=== PATIENT | male | born 1950 | race Caucasian/White ===

== ENCOUNTER → 2018-09-19 | Outpatient (RCR) | payer MEDICARE, OTHER ==
[~2018-09-19] MED LIST: HUMALOG100 UNIT/1 SC; METFORMIN HCL500 MG PO; TRESIBA SC; WAL-DRYL25 MG PO; ZESTORETIC 20-1 EAC1 PO
[2018-09-19 16:23] LABS: BASOPHILS # (AUTO) 0.1 (0.0-0.1); BASOPHILS % 0.7 % (0.0-1.0); EOSINOPHILS # (AUTO) 0.2 (0.0-0.4); EOSINOPHILS % 1.9 % (0.0-6.0); HEMOGLOBIN 14.7 g/dL (14.0-18.0); LYMPHOCYTES # (AUTO) 2.8 (1.0-3.2); LYMPHOCYTES % 25.5 % (18.0-39.1); MEAN CORPUSCULAR HEMOGLOBIN 32.7 pg (28-32); MEAN CORPUSCULAR HGB CONC 35.9 g/dL (31-35); MEAN CORPUSCULAR VOLUME 91.3 fL (81-99); MONOCYTES # (AUTO) 0.8 (0.2-0.8); MONOCYTES % 7.6 % (4.4-11.3); NEUTROPHILS % 63.8 % (38.7-80.0); PLATELET COUNT 234 x10e3/uL (140-360); RED BLOOD COUNT 4.49 x10e6/uL (4.3-5.7); RED CELL DISTRIBUTION WIDTH 12.4 % (11.7-14.4)
[2018-09-19 16:50] LABS: ALANINE AMINOTRANSFERASE 32 IU/L (0-55); ALBUMIN 3.6 g/dL (3.5-5.0); ALBUMIN/GLOBULIN RATIO 0.9 (0.8-2.0); ALKALINE PHOSPHATASE 48 IU/L (40-150); ANION GAP 12.9 mmol/L (8-16); BLOOD UREA NITROGEN 20 mg/dL (7-26); BUN/CREATININE RATIO 19 (6-25); CALCIUM 9.6 mg/dL (8.4-10.2); CARBON DIOXIDE 23 mmol/L (22-29); CHLORIDE 104 mmol/L (98-107); CREATININE, SERUM 1.08 mg/dL (0.72-1.25); EST GLOMERULAR FILTRATION RATE > 60 ML/MIN (60-); GLUCOSE 128 mg/dL (74-118); POTASSIUM 3.9 mmol/L (3.5-5.1); SODIUM 136 mmol/L (136-145)
[2018-09-19 17:22] LABS: ERYTHROCYTE SEDIMENTATION RATE 40 mm/hr (0-13)
== END ==
LOC: EDBD → WCC 14:03
PROVIDERS: ATTEND Podiatrist
DX: E11.621 Type 2 diabetes mellitus with foot ulcer (principal); E11.40 Type 2 diabetes mellitus with diabetic neuropathy, unspecified; E11.65 Type 2 diabetes mellitus with hyperglycemia; L97.519 Non-pressure chronic ulcer of other part of right foot with unspecified severity; I10 Essential (primary) hypertension
CPT/HCPCS: 36415; 80053; 83036; 84134; 85025; 85651; 86140

== ENCOUNTER → 2018-09-24 | Outpatient (CLI) | payer MEDICARE, OTHER ==
--- NOTE | 2018-09-24 08:51 | Diagnostic Imaging Report ---
Exam: Right for foot, 3 views History: Type 2 diabetes, ulcer Comparison: None available Findings: No acute, displaced fracture or dislocation. 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 Degenerative spur along the midfoot dorsally. No gross soft tissue defect or subcutaneous gas. No cortical erosive or destructive change. Impression: No gross soft tissue defect or plain film evidence of osteomyelitis. If there is strong clinical concern 3 phase nuclear medicine bone scan or MRI with and without contrast may be obtained. Signed by: Dr. Dom Danielson M.D. on 09/24/2018 8:47 AM
== END ==
LOC: EDBD → CARD 08:07
PROVIDERS: ATTEND Podiatrist
DX: E11.621 Type 2 diabetes mellitus with foot ulcer (principal); L97.519 Non-pressure chronic ulcer of other part of right foot with unspecified severity
CPT/HCPCS: 93922; 93926

== ENCOUNTER 2018-10-03 14:18 | Outpatient (RCR) | payer MEDICARE, OTHER ==
[~2018-10-03 14:18] MED LIST changes: +LIDOCAINE VISC 2% SOLN 15 ML UDC ONE
== END 2018-10-19 ==
LOC: WCC 14:18
PROVIDERS: ATTEND Podiatrist
DX: E11.40 Type 2 diabetes mellitus with diabetic neuropathy, unspecified (principal); E11.65 Type 2 diabetes mellitus with hyperglycemia; E11.621 Type 2 diabetes mellitus with foot ulcer; L97.519 Non-pressure chronic ulcer of other part of right foot with unspecified severity; I10 Essential (primary) hypertension

== ENCOUNTER → 2020-07-18 | Outpatient (CLI) | payer MEDICARE ==
[~2020-07-18] MED LIST changes: -LIDOCAINE VISC 2% SOLN 15 ML UDC ONE
== END ==
LOC: DX 09:56
PROVIDERS: ATTEND Internal Medicine Infectious Disease
DX: M86.271 Subacute osteomyelitis, right ankle and foot (principal)
CPT/HCPCS: 36569; 71045

== ENCOUNTER → 2020-08-03 | Outpatient (CLI) | payer MEDICARE | LOC: CARD 08:29 | PROVIDERS: ATTEND Podiatrist | DX: E11.621 Type 2 diabetes mellitus with foot ulcer (principal); L97.511 Non-pressure chronic ulcer of other part of right foot limited to breakdown of skin; I73.9 Peripheral vascular disease, unspecified | CPT/HCPCS: 93922; 93925 ==

== ENCOUNTER 2020-08-17 14:37 | Outpatient (RCR) | payer MEDICARE ==
[2020-07-27 18:18] LABS: BASOPHILS # (AUTO) 0.1 (0.0-0.1); BASOPHILS % 0.8 % (0.0-1.0); EOSINOPHILS # (AUTO) 0.2 (0.0-0.4); EOSINOPHILS % 2.8 % (0.0-6.0); HEMATOCRIT 47.4 % (38.2-49.6); HEMOGLOBIN 16.2 g/dL (14.0-18.0); LYMPHOCYTES # (AUTO) 1.9 (1.0-3.2); LYMPHOCYTES % 24.1 % (18.0-39.1); MEAN CORPUSCULAR HEMOGLOBIN 31.2 pg (28-32); MEAN CORPUSCULAR HGB CONC 34.2 g/dL (31-35); MEAN CORPUSCULAR VOLUME 91.3 fL (81-99); MONOCYTES # (AUTO) 0.6 (0.2-0.8); MONOCYTES % 7.8 % (4.4-11.3); NEUTROPHILS # (AUTO) 5.1 (2.1-6.9); NEUTROPHILS % 63.9 % (38.7-80.0); PLATELET COUNT 184 x10e3/uL (140-360); RED BLOOD COUNT 5.19 x10e6/uL (4.3-5.7); RED CELL DISTRIBUTION WIDTH 12.4 % (11.7-14.4)
[2020-07-27 18:36] LABS: ALANINE AMINOTRANSFERASE 44 IU/L (0-55); ALBUMIN 3.4 g/dL (3.5-5.0); ALBUMIN/GLOBULIN RATIO 0.9 (0.8-2.0); ALKALINE PHOSPHATASE 55 IU/L (40-150); ANION GAP 16.2 mmol/L (8-16); BLOOD UREA NITROGEN 20 mg/dL (7-26); BUN/CREATININE RATIO 23 (6-25); CARBON DIOXIDE 24 mmol/L (22-29); CHLORIDE 101 mmol/L (98-107); CREATININE, SERUM 0.87 mg/dL (0.72-1.25); EST GLOMERULAR FILTRATION RATE > 60 ML/MIN (60-); GLUCOSE 108 mg/dL (74-118); POTASSIUM 4.2 mmol/L (3.5-5.1); SODIUM 137 mmol/L (136-145)
[~2020-08-17 14:37] MED LIST changes: +LIDOCAINE VISC 2% SOLN 15 ML UDC ONE
== END 2020-08-19 ==
LOC: WCC 14:37
PROVIDERS: ATTEND Podiatrist
DX: E11.621 Type 2 diabetes mellitus with foot ulcer (principal); E11.40 Type 2 diabetes mellitus with diabetic neuropathy, unspecified; E11.65 Type 2 diabetes mellitus with hyperglycemia; L97.511 Non-pressure chronic ulcer of other part of right foot limited to breakdown of skin; I10 Essential (primary) hypertension
CPT/HCPCS: 36415; 80053; 83036; 84134; 85025; 85651; 86140

== ENCOUNTER 2020-09-14 13:25 | Outpatient (RCR) | payer MEDICARE ==
[~2020-09-14 13:25] MED LIST changes: +IOPAMIDOL 370 MG/ML 200 ML INFUS..BTL INJ ONE; +LIDOCAINE/PRILOCAINE 2.5-2.5% KIT ONE; +SODIUM CHLORIDE 0.9% 50ML 50 ML ONE
== END 2020-09-19 ==
LOC: WCC 13:25
PROVIDERS: ATTEND Podiatrist
DX: E11.621 Type 2 diabetes mellitus with foot ulcer (principal); E11.40 Type 2 diabetes mellitus with diabetic neuropathy, unspecified; E11.65 Type 2 diabetes mellitus with hyperglycemia; L97.511 Non-pressure chronic ulcer of other part of right foot limited to breakdown of skin; I10 Essential (primary) hypertension
CPT/HCPCS: 11042 ×4; Q9967

== ENCOUNTER → 2020-10-19 | Outpatient (RCR) | payer MEDICARE ==
[~2020-10-19] MED LIST changes: -IOPAMIDOL 370 MG/ML 200 ML INFUS..BTL INJ ONE; -LIDOCAINE VISC 2% SOLN 15 ML UDC ONE; -LIDOCAINE/PRILOCAINE 2.5-2.5% KIT ONE; -SODIUM CHLORIDE 0.9% 50ML 50 ML ONE
== END ==
LOC: WCC 09-21 14:11
PROVIDERS: ATTEND Podiatrist
DX: E11.621 Type 2 diabetes mellitus with foot ulcer (principal); E11.40 Type 2 diabetes mellitus with diabetic neuropathy, unspecified; E11.65 Type 2 diabetes mellitus with hyperglycemia; L97.511 Non-pressure chronic ulcer of other part of right foot limited to breakdown of skin; I10 Essential (primary) hypertension
CPT/HCPCS: 36415; 82948

== ENCOUNTER 2020-11-18 15:20 | Outpatient (RCR) | payer MEDICARE ==
[~2020-11-18 15:20] MED LIST changes: +LIDOCAINE VISC 2% SOLN 15 ML UDC ONE
== END 2020-11-19 ==
LOC: WCC 15:20
PROVIDERS: ATTEND Podiatrist
DX: E11.621 Type 2 diabetes mellitus with foot ulcer (principal); E11.40 Type 2 diabetes mellitus with diabetic neuropathy, unspecified; E11.65 Type 2 diabetes mellitus with hyperglycemia; L97.511 Non-pressure chronic ulcer of other part of right foot limited to breakdown of skin; I10 Essential (primary) hypertension

== ENCOUNTER 2020-12-14 14:28 | Outpatient (RCR) | payer MEDICARE ==
[~2020-12-14 14:28] MED LIST changes: -LIDOCAINE VISC 2% SOLN 15 ML UDC ONE
== END 2020-12-20 ==
LOC: WCC 14:28
PROVIDERS: ATTEND Podiatrist
DX: E11.621 Type 2 diabetes mellitus with foot ulcer (principal); E11.40 Type 2 diabetes mellitus with diabetic neuropathy, unspecified; E11.65 Type 2 diabetes mellitus with hyperglycemia; L97.511 Non-pressure chronic ulcer of other part of right foot limited to breakdown of skin; I10 Essential (primary) hypertension

== ENCOUNTER 2021-01-11 15:02 | Outpatient (RCR) | payer MEDICARE | END 2021-01-19 | LOC: WCC 15:02 | PROVIDERS: ATTEND Podiatrist | DX: E11.621 Type 2 diabetes mellitus with foot ulcer (principal); E11.40 Type 2 diabetes mellitus with diabetic neuropathy, unspecified; E11.65 Type 2 diabetes mellitus with hyperglycemia; L97.511 Non-pressure chronic ulcer of other part of right foot limited to breakdown of skin; I10 Essential (primary) hypertension ==

== ENCOUNTER 2021-02-15 15:02 | Outpatient (RCR) | payer MEDICARE | END 2021-02-19 | LOC: WCC 15:02 | PROVIDERS: ATTEND Podiatrist | DX: E11.40 Type 2 diabetes mellitus with diabetic neuropathy, unspecified (principal); E11.65 Type 2 diabetes mellitus with hyperglycemia; E11.621 Type 2 diabetes mellitus with foot ulcer; L97.511 Non-pressure chronic ulcer of other part of right foot limited to breakdown of skin; I10 Essential (primary) hypertension ==

== ENCOUNTER 2021-02-22 15:59 | Outpatient (RCR) | payer MEDICARE ==
[2021-02-22] MEDS ORDERED: MUPIROCIN 2% OINT 22 GM TUBE ONE (16:24)
== END 2021-03-21 ==
LOC: WCC 15:59
PROVIDERS: ATTEND Podiatrist
DX: E11.621 Type 2 diabetes mellitus with foot ulcer (principal); E11.40 Type 2 diabetes mellitus with diabetic neuropathy, unspecified; E11.65 Type 2 diabetes mellitus with hyperglycemia; L97.511 Non-pressure chronic ulcer of other part of right foot limited to breakdown of skin; I10 Essential (primary) hypertension

== ENCOUNTER 2024-02-19 19:04 | Emergency (ER) | payer MEDICARE ==
[~2024-02-19] VITALS: Ht 188 cm; Wt 127.0 kg
[2024-02-19 19:39] VITALS: PULSE 95; RESP 20; TEMP 97.1; O2SAT 97
[2024-02-19] MEDS ORDERED: NASONEX 24HR AL17 ML (20:07)
== END 2024-02-19 20:25 | disposition home or self-care (01) ==
LOC: FSED 19:38
DX: R42 Dizziness and giddiness (principal); H66.91 Otitis media, unspecified, right ear; I10 Essential (primary) hypertension; E11.9 Type 2 diabetes mellitus without complications
CPT/HCPCS: 99282

== ENCOUNTER 2024-08-27 15:36 | Emergency (ER) | payer MEDICARE ==
[~2024-08-27] VITALS: Ht 185.4 cm; Wt 118.5 kg
[~2024-08-27 15:36] MED LIST changes: +NASONEX 24HR AL17 ML
[2024-08-27] MEDS ORDERED: DOXYCYCLINE HY100 MG PO (16:55)
[2024-08-27] MEDS ORDERED: BENZONATATE100 MG PO (16:56)
[2024-08-27 17:09] VITALS: PULSE 97; RESP 18; TEMP 98.8; O2SAT 97
== END 2024-08-27 17:09 | disposition home or self-care (01) ==
LOC: FSED 15:52
DX: R05.9 Cough, unspecified (principal); J18.9 Pneumonia, unspecified organism; R09.89 Other specified symptoms and signs involving the circulatory and respiratory systems; I10 Essential (primary) hypertension; E11.9 Type 2 diabetes mellitus without complications; E78.5 Hyperlipidemia, unspecified; Z11.52 Encounter for screening for COVID-19; Z96.653 Presence of artificial knee joint, bilateral
CPT/HCPCS: 0223U; 71045; 87400; 99283